=== PATIENT | female | born 1990 | race Native Hawaiian/Other Pacific Islander ===

== ENCOUNTER 2022-02-22 18:56 | Emergency (ER) | payer OTHER ==
[~2022-02-22] VITALS: Ht 157.5 cm; Wt 68.0 kg
[2022-02-22 18:58] VITALS: BP 160/78; TEMP 98
[2022-02-22 20:03] LABS: PLATELET COUNT 255 K/uL (152-353)
[2022-02-22 20:23] LABS: POTASSIUM 3.1 mmol/L (3.6-5.2)
== END 2022-02-22 21:07 | disposition home or self-care (01) ==
LOC: ED 18:56
PROVIDERS: Emergency Medicine
DX: F19.10 Other psychoactive substance abuse, uncomplicated (principal); R00.0 Tachycardia, unspecified
CPT/HCPCS: 36415; 80053; 80307; 81000; 85027; 85610; 93005; 99284